=== PATIENT | female | born 2000 | race Two or more races ===

== ENCOUNTER 2024-09-30 09:37 | Outpatient (REF) | payer OTHER, SELFPAY ==
[2024-09-30 14:08] LABS: HCG Quantitative < 2 mIU/mL
== END 2024-09-30 09:38 | disposition home or self-care (01) ==
LOC: HO.HMGCLDS 09:37
PROVIDERS: Visit Provider Nurse Practitioner Family
DX: Z39.1 Encounter for care and examination of lactating mother (principal); N91.1 Secondary amenorrhea; G43.009 Migraine without aura, not intractable, without status migrainosus
CPT/HCPCS: 36415; 81025; 84702; 99212

== ENCOUNTER 2024-09-30 09:37 | Outpatient (AMB) | payer OTHER, SELFPAY ==
--- NOTE | 2024-09-30 10:12 | MHC.OFFWIV ---
Intake Vital Signs 09/30/24 10:13 Height 5 ft Weight 120 lb BMI 23.4 BP 92/60 Blood Pressure Location Rt brachial Position Sitting Pulse 64 Pulse Source Pulse Oximeter Temp 97.8 F Temp Source Oral Pulse Oximetry (%) 99 Oxygen Delivery Method Room Air Intake Visit Reasons: DOCTOR OF AUDIOLOGY- Over 5M VALENCIA Intake Note: Pt is here today c/o on & off H/A 5mo. also hasn't had her menses around the same time headache started Allergies No Known Allergies Allergy (Verified 09/30/24 10:35) Medication List - Last Reconciled 09/30/24 by Carole Levy, EMBEDDED HARDWARE ENGINEER- sumatriptan succinate (Imitrex) take 1 tab at onset of headache; if no relief may repeat 1 tab after at least 2 hrs; max = 4 tabs/24 hr PO HPI HPI Comments History of Present Illness Details 24-year-old female, Ukrainian-speaking here today with her teenage daughter and 11 month old daughter. Dtr helps w/ language barrier. Complaints of daily headaches for 5 months. Uses ibuprofen 3-4 times per week which does cure her headache. She describes the headache as pressure in her forehead and in her temples. Sometimes at the base of her skull. She denies any other neuro symptoms to include auras. Unfortunately she does not have a primary care provider. States that she has never been seen by a neurologist. In addition to this complaint she does report that she has not had her period in 5 months. She ius her 60-hqmrw-zvj daughter. She is active with [facility] but she has not called her informed them about this issue. Exam Awake alert oriented, no acute distress PERRLA, EOMI Regular rate and rhythm Lung sounds clear to auscultation bilat Grossly normal neuro exam Plan Urine test negative. Made aware that can cause amenorrhea. States that her period came back in April and then stopped. Reports that the similar thing happened with the of her [id number]-trm daughter. Therefore we will check a blood hCG quantitative. I strongly recommend that she follow up with her layer up provider. Treat for her migraine headaches with Imitrex. [facility] reviewed. This is safe for as well as . Take as directed. Strongly encouraged to establish care with a primary care provider for further follow up as this will be a chronic condition going forward. Educated on reasons to seek care in the emergency room. At 13:05 I did review the patient's chart. It does not appear that she stopped at the lab to get the HCG drawn as recommended. This note is constructed using voice recognition software. While every effort has been made to ensure accuracy in pneumatic tube repairer, still errors may have been included Sometimes, these errors may affect the content or meaning of the given sentence . Total time spent caring for the patient today was 30 minutes. This includes time spent before the visit reviewing the chart, time spent during the visit, and time spent after the visit on documentation Physical Exam Vital Signs: Last Vital Signs Temp 97.8 F 09/30/24 10:13 Pulse 64 09/30/24 10:13 BP 92/60 09/30/24 10:13 Pulse Ox 99 09/30/24 10:13 Oxygen Delivery Method Room Air 09/30/24 10:13 BMI result Body Mass Index 23.4 Results AMB Test Urine AMB Test Urine Negative Last Edit by Dory Christy CMA on 09/30/24 10:31 Results Reviewed Results Reviewed: Laboratory Last Values [facility]st Clinic Negative 09/30/24 10:30 Assessment & Plan Assessment & Plan (1) Secondary amenorrhea: Code(s): N91.1 - Secondary amenorrhea Plan: . (2) Breast feeding status of mother: Code(s): Z39.1 - Encounter for care and examination of lactating mother Plan: . (3) Migraine without aura: Code(s): G43.009 - Migraine without aura, not intractable, without status migrainosus Qualifiers: Intractability: not intractable Status migrainosus presence: without status migrainosus Qualified Code(s): G43.009 - Migraine without aura, not intractable, without status migrainosus Plan: . Orders: Orders AMB HCG Urine Test Today Z32.02 - Encounter for test, result negative HCG Quantitative Today N91.1 - Secondary amenorrhea Medications: New sumatriptan succinate (Imitrex) take 1 tab at onset of headache; if no relief may repeat 1 tab after at least 2 hrs; max = 4 tabs/24 hr PO 7 tabs 0RF Coding Level of Care Code Est Pt Level 4 (58893) Diagnoses Secondary amenorrhea N91.1 Breast feeding status of mother Z39.1 Migraine without aura and without status migrainosus, not intractable G43.009 Intractability: not intractable Status migrainosus presence: without status migrainosus
[2024-09-30 10:13] VITALS: BP 92/60; PULSE 64; TEMP 36.6; O2SAT 99; BMI 23.4
== END 2024-09-30 10:58 | disposition home or self-care (01) ==
PROVIDERS: Visit Provider Nurse Practitioner Family
DX: N91.1 Secondary amenorrhea (principal); G43.009 Migraine without aura, not intractable, without status migrainosus; Z32.02 Encounter for pregnancy test, result negative

== ENCOUNTER 2025-11-09 13:40 | Outpatient (REF) | payer MEDICAID, SELFPAY ==
--- OUTSIDE RECORDS SUMMARY | 2025-11-09 13:00 | XMS_ITS | Encounter Summary ---
Author Organization [employer] Address [address] [place] [address] Care Team Providers Care Digital Forensic Analyst Name Role Phone Mana Merrill MD Primary Care Provider [phone] Reason for Visit * Reason Comments new pt Encounter Details Date Type Department Care Team (Late st Contact Info) Description 11/09/2025 1:00 PM EST Office Visit [facility] [address], [place] [phone] Mana Merrill MD [address], [place] [phone] Pelvic pain (Primary Dx); Dietary counseling; Exercise counseling; Encounter for immunization Social History Tobacco Use Types Packs/Day Years Used Date Smoking Tobacco: Never Smokeless Tobacco: Never Alcohol Use Standard Drinks/Week Comments Defer 0 (1 standard drink = 0.6 oz pur e alcohol) Depression Answer Date Recorded Patient Health Questionnaire-9 Score 0 11/09/2025 Patient Health Questionnaire-9 Score 0 11/09/2025 Last PHQ-9: Questionnaire Data Not on file 1 01/10/2025 Housing Stability Answer Date Recorded What is your housing situation today? I have kathy pritchett 10/31/[address] you li ve. Do you have problems with any of the following? None of the above 10/31/2025 Food Insecurity Answer Date Recorded Within the past 12 months, y ou worried that your food would run out before you got money to buy more: Never True 10/31/2025 Within the past 12 months,th e food you bought just didn't last and you didn't have enough money to get more: Never True 08/2025 Transportation Answer Date Recorded In the past 12 months, has l ack of transportation kept you from medical appts, meetings, work or from getting things needed for daily living? No 10/31/2025 Utilities Answer Date Recorded In the past 12 months, has t he electric, gas, oil or water company threatened to shut off services in your home? No 10/31/2025 Depression Answer Date Recorded Patient Health Questionnaire-2 Score 0 11/09/2025 Internet Access Answer Date Recorded Internet Access Q1 Yes 10/31/2025 Internet Access Q2 Not on file 10/31/2025 Comments No Sex and Gender Information Value Date Recorded Sex Assigned at Female 06/06/2024 9:24 AM EDT Legal Sex Female 12:23 PM EST Gender Identity Female 06/06/2024 9:24 AM EDT Sexual Orientation Choose not to disclose 2023 9:24 AM EDT documented as of this encounter Last Filed Vital Signs Vital Sign Reading Time Taken Comments Blood Pressure 100/74 11/09/2025 1:11 PM EST Pulse 74 11/09/2025 1:11 PM EST Temperature 37.6 C (99.6 F) 11/09/2025 1:11 PM EST Respiratory Rate 20 11/09/2025 1:11 PM EST Oxygen Saturation 97% 11/09/2025 1:11 PM EST Inhaled Oxygen Concentration - - Weight 61.4 kg (135 lb 6.4 oz) 11/09/2025 1:11 P M EST Height 147.3 cm (4' 10 ) 11/09/2025 1:11 PM EST Body Mass Index 28.3 11/09/2025 1:11 PM EST documented in this encounter Functional Status * Over the past 2 weeks, how often have you been bothered by any of the following problems? Question Answer Date of Assessment Author Patient Health Questionnaire -2 Score 0 11/09/2025 1:39 PM EST Maxine Curtis MA * Little interest or pleasure in doing things Answer Date of Assessment Author Not at all 11/09/2025 1:39 PM EST Maxine Curtis MA * Feeling down, depressed, or hopeless Answer Date of Assessment Author Not at all 11/09/2025 1:39 PM EST Maxine Curtis MA * Trouble falling or staying asleep, or sleeping too much Answer Date of Assessment Author Not at all 11/09/2025 1:39 PM EST Maxine Curtis MA * Feeling tired or having little energy Answer Date of Assessment Author Not at all 11/09/2025 1:39 PM Maxine Pemberton MA * Poor appetite or overeating Answer Date of Assessment Author Not at all 11/09/2025 1:39 PM Maxine Pemberton MA * Feeling bad about yourself - or that you are a failure or have let yourself or your family down Answer Date of Assessment Author Not at all 11/09/2025 1:39 PM Maxine Pemberton MA * Trouble concentrating on things, such as reading the newspaper or watching television Answer Date of Assessment Author Not at all 11/09/2025 1:39 PM Maxine Pemberton MA * Moving or speaking so slowly that other people could have noticed? Or the opposite - being so fidgety or restless that you have been moving around a lot more than usual. Answer Date of Assessment Author Not at all 11/09/2025 1:39 PM Maxine Pemberton MA * Thoughts that you would be better off or hurting yourself in some way Answer Date of Assessment Author Not at all 11/09/2025 1:39 PM Maxine Pemberton MA * Patient Health Questionnaire-9 Score Answer Date of Assessment Author 0 11/09/2025 1:39 PM Maxine Pemberton MA * Over the last 2 weeks, how often have you been bothered by any of the following problems? Question Answer Date of Assessment Author Feeling nervous, anxious, or on edge 1 11/09/2025 1:39 PM Maxine Pemberton MA Not being able to stop or co ntrol worrying 0 11/09/2025 1:39 PM Maxine Pemberton MA Worrying too much about diff erent things 1 11/09/2025 1:39 PM Maxine Pemberton MA Trouble relaxing 0 11/09/2025 1:39 PM Maxine Shelby MA Being so restless that it is hard to sit still 0 11/09/2025 1:39 PM Maxine Pemberton MA Becoming easily annoyed or irritable 0 11/09/2025 1:39 PM Maxine Pemberton MA Feeling afraid as if somethi ng awful might happen 0 11/09/2025 1:39 PM EST Maxine Curtis MA ELDON-7 Total Score 2 11/09/2025 1:39 PM EST Maxine Curtis MA documented as of this encounter Plan of Treatment Pending Results Name Type Priority Associated Diagnoses Date /Time Urinalysis, Complete, with Reflex to Culture Lab Routine Pelvic pain 11/09/2025 1:45 PM EST Scheduled Orders Name Type Priority Associated Diagnoses Orde r Schedule TSH W/Reflex to FT4 Lab Routine Pelvic pain Expected: 11/09/2025 (Approximate), Expires: 11/09/2026 Comprehensive Metabolic Panel Lab Routine Pelvic pain Expected: 11/09/2025 (Approximate), Expires: 11/09/2026 documented as of this encounter Procedures Procedure Name Priority Date/Time Associated Diagnosis Comments URINALYSIS, COMPLETE, WITH REFLEX TO CULTURE Routine 11/09/2025 1:45 PM EST Pelvic pain CBC WITH AUTO DIFFERENTIAL Routine 11/09/2025 1:45 PM EST Pelvic pain documented in this encounter Results * (ABNORMAL) CBC auto differential (11/09/2025 1:45 PM EST) White Blood Count 6.2 4.8 - 10.8 X10*3/uL [facility] Red Blood Count 4.18(L) 4.20 - 5.50 X10*6/uL [facility] Hemoglobin 11.7(L) 12.0 - 16.0 g/dl [facility] Hematocrit 36.3(L) 37.0 - 47.0 % [facility] Mean Corpuscular Volume 86.8 80.0 - 98.0 fL [facility] Mean Corpuscular Hemoglobin 28.0 27.0 - 33.0 pg [facility] Mean Corpuscular HGB Conc 32.2 31.0 - 35.0 g/dl [facility] Red Cell Distribution Width 13.3 11.0 - 16.0 % [facility] Platelet Count 223 160 - 400 X10*3/uL [facility] Mean Platelet Volume 10.6 9.4 - 12.3 fL [facility] Neutrophils Percent Auto 48.5 45 - 73 % [facility] Imm Gran Pct Auto 0.2 0.0 - 0.4 % [facility] Lymphocytes Percent Auto 39.5 20 - 40 % [facility] Monocytes Percent Auto 8.0 2 - 11 % [facility] Eosinophils Percent Auto 3.0 0 - 4 % [facility] Basophils Percent Auto 0.8 0 - 2 % [facility] NRBC Pct Auto 0.0 0.0 - 0.2 /100WBC [facility] Neutrophils Absolute Auto 3.0 2.0 - 8.3 x10*3/uL [facility] Imm Gran Abs Auto 0.01 0.00 - 0.03 X10*3/uL [facility] Lymphocytes Absolute Auto 2.5 1.2 - 4.9 X10*3/uL [facility] Monocytes Absolute Auto 0.5 0.1 - 1.2 X10*3/uL [facility] Eosinophils Absolute Auto 0.2 0.0 - 0.4 X10*3/uL [facility] Basophils Absolute Auto 0.1 0.0 - 0.2 X10*3/uL [facility] NRBC Abs Auto 0.000 0.0 - 0.012 X10*3/uL [facility] Blood Venous blood specimen / Unknown 11/09/2025 1:45 PM EST 11/09/2025 2:50 PM EST us Mana Merrill MD LAB BLOOD ORDERABLES Final Res ult [facility] [address] [place] [address] [phone] documented in this encounter Visit Diagnoses Diagnosis Pelvic pain- Primary Dietary counseling Dietary surveillance and counseling Exercise counseling Encounter for immunization documented in this encounter Additional Health Concerns Assessment Noted Time PHQ-9 Depression Total Score: 0 11/09/20 25 1:39 PM EST documented as of this encounter Care Teams Digital Forensic Analyst Relationship Specialty Start Date End Date Mana Merrill MD [address] [place] [address] PCP - General Family Medicine 11/09/25 documented as of this encounter
[2025-11-09 14:56] LABS: MANUAL DIFF FLAG NO
[2025-11-09 15:13] LABS: Hematocrit 36.3 % (37.0-47.0); Hemoglobin 11.7 g/dl (12.0-16.0); Imm Gran Abs Auto 0.01 X10*3/uL (0.00-0.03); Imm Gran Pct Auto 0.2 % (0.0-0.4); Lymphocytes Absolute Auto 2.5 X10*3/uL (1.2-4.9); Mean Corpuscular HGB Conc 32.2 g/dl (31.0-35.0); Mean Corpuscular Hemoglobin 28.0 pg (27.0-33.0); Mean Corpuscular Volume 86.8 fL (80.0-98.0); NRBC Abs Auto 0.000 X10*3/uL (0.0-0.012); NRBC Pct Auto 0.0 /100WBC (0.0-0.2); Platelet Count 223 X10*3/uL (160-400); Red Blood Count 4.18 X10*6/uL (4.20-5.50); White Blood Count 6.2 X10*3/uL (4.8-10.8)
[2025-11-09 15:14] LABS: Appearance Urine Clear; Glucose Urine UA Negative (Negative); PH 7.5 (5.0-9.0); Specific Gravity - Urine 1.025 (1.005-1.025)
--- OUTSIDE RECORDS SUMMARY | 2025-11-09 15:23 | XMS_ITS | Encounter Summary ---
Author Organization [employer] Address [address] [place] [address] Care Team Providers Care Glue Jointer Feeder Name Role Phone Unavailable Primary Care Provider Unavailabl e Reason for Visit * Reason Onset Date Comments Chart Prep 11/08/2025 Encounter Details Date Type Department Care Team (Late st Contact Info) Description 11/08/2025 Telephone [facility] [address] [place], [place] [phone] Mana Merrill MD [address] [place], [place] [phone] Chart Prep Social History Tobacco Use Types Packs/Day Years [...] the past 12 months, has t he Mobile Authentication, gas, oil or water [employer] threatened to shut off services in your [...] AM EDT documented as of this encounter Miscellaneous Notes * Telephone Encounter - Jayna Fonseca MA - 11/08/2025 11:25 AM EST Chart Prep Labs: done Images: not applicable Referrals: not applicable Vaccines due: Covid, Flu, Hep B, and HPV Screenings: pap smear, LMP, PISQ, and HIV Screening, Hep C Screening Overdue care gaps: SBIRT, PHQ-9, ELDON-7, and Disability screen documented in this encounter Plan of Treatment Not on file documented as of this encounter Visit Diagnoses Not on filedocumented in this encounter
--- OUTSIDE RECORDS SUMMARY | 2025-11-09 15:23 | XMS_ITS | Clinical Summary ---
Author Organization [employer] Address [address] [facility] [address] [place] [address] Care Team Providers Care Accounting Manager Controller Name Role Phone Mana Merrill MD Primary Care Provider [phone] Allergies Active Allergy Reactions Criticality Noted Date Comments Shellfish Allergy Swelling 12/17/2023 Shrimp Shrimp Extract Swelling 12/20/2023 Medications acetaminophen (Tylenol) 325 MG tablet Take 975 mg by mouth every 6 (six) hours if needed. 4 Active SUMAtriptan (Imitrex) 25 MG tablet PLEASE SEE ATTACHED FOR DETAILED DIRECTIONS 4 Active hydrocortisone 1 % ointment Apply topically 2 times daily. 30 g 3 5 Active ibuprofen 600 MG tablet Take 1 tablet (600 mg) by mouth 3 times daily. 90 tablet 5 12/09/19 Active Active Problems Problem Noted Date Diagnosed Date Impacted third molar tooth 07/18/2025 Tooth decalcification 07/18/2025 Tooth sensitivity 07/18/2025 Pain in tooth 07/18/2025 History of tooth extraction 05/21/2025 Dental calculus 01/15/2025 Frequent headaches 10/09/2024 Tipped teeth 07/13/2024 Dental plaque 07/13/2024 Missing teeth, acquired 07/13/2024 Resorption of root of tooth due to orthodontic f orce 07/13/2024 Fractured dental latter day without loss of mat erial 07/13/2024 care and examination 03/02/2024 Overview (06/07/2024): Last Assessment & Plan: -Pap smear obtained today Anemia due to acute blood loss 01/17/2024 Overview (06/07/2024): Last Assessment & Plan: Discussed HGB 7.0 - she denies s/s of anemia - reviewed R/B of blood transfusion - she is undecided. She will see how she feels with walking to new room and then decide. Normal intrauterine , antepartum 2023 Low-lying placenta 12/28/2023 Overview (06/07/2024): 1.8 cm from os at 35 weeks Recheck in 3 weeks Last Assessment & Plan: Has f/u sono scheduled for next week. Maternal varicella, non-immune 12/27/2023 Rubella non-immune status, antepartum 12/27/2023 Encounter for supervision of normal first in third trimester 12/20/2023 Overview (06/07/2024): CNM [place] speaking only - needs boring mill set up operator Group PN care? No - late to care (1st visit at 35 weeks) screening considering Baby ASA? no Rh positive GC/Chlam collected 12/20/23 PAP - unknown Flu 12/20/23 COVID-19 had vaccine prior to , unsure of date Hgb 10.5 at 35 weeks (rx sent for iron) GTT -not done, collected HgbA1c and random on 12/20/23 Repeat RPR pending Tdap 12/20/23 RSV 12/27/23 EPDS - 11 - disc avail of [facility] services and declined at 37w PPBC * GBS neg Feeding Plan breast Last Assessment & Plan: Seen w video boring mill set up operator both with her brother and also in private. Difficult to interview with limited responses. Her brother or sister will drive her to [facility] for labor. Her brother had a baby at [facility] a few weeks ago, so he knows where to go. She still needs more things for the baby. Reviewed again with brother availability of [facility] where they can both go and get needed items. Described [facility] counseling with [facility] therapists and virtual appts to disc her recent stresses of immigration. She declines at this time. Reviewed in detail when/how to call for labor or any concerns. 3rd tri comforts measures reviewed. Disc steps to take toward optimal health in . Reviewed s/s labor, danger signs, when/how to call. Limited care in third trimester 024 Overview (06/07/2024): Immigrated to [place] in 3rd trimester, first OB visit 12/20/23. 2 visits in [facility]. Decreased movement aff ecting management of mother, antepartum 12/17/2023 Encounters Date Type Department Care Team Description 11/09/2025 1:00 PM EST Office Visit [facility] [address] [place] [address] Mana Merrill MD Pelvic pain (Primary Dx); Dietary counseling; Exercise counseling; Encounter for immunization 11/09/2025 Travel 11/08/2025 Telephone [facility] [address] [place] [address] Mana Merrill MD Chart Prep 10/31/2025 Patient Outreach [facility] [address] [place] [address] Mana Merrill MD Pre-visit Planning (SDOH screening negative and tobacco screening negative) 10/02/2025 Telephone [facility] INS ENROLLMENT [address] [place] [address] Silvana Hameed MD from Last 3 Months Immunizations Immunization Administration Dates Next Due Influenza injectable quadrivalent preservative f ree 12/20/2023 Influenza, seasonal, injectable, preservative fr ee 11/09/2025 MMR 01/20/2024 RSV Bivalent 12/27/2023 Tdap 12/20/2023 Varicella 01/20/2024 Social History Tobacco Use Types Packs/Day Years Used Date Smoking Tobacco: Never Smokeless Tobacco: Never Tobacco Cessation:Counseling Given: Not Answered Alcohol Use Standard Drinks/Week Comments Defer 0 [...] not to disclose 2023 9:24 AM EDT Last Filed Vital Signs Vital Sign Reading [...] Mass Index 28.3 11/09/2025 1:11 PM EST Plan of Treatment Health Maintenance Due Date Last Done Comments HIV Screening 1999 Family Planning (PISQ) 2014 HPV Vaccines (1 - 3-dose series) 2014 Hepatitis C Screening 2017 Hepatitis B Vaccines (1 of 3 - 19+ 3-dose series) 2018 Pap Smear 2020 Dental Oral Exam 01/14/2025 07/13/2024 COVID-19 Vaccine (1 - 2024-2 6 season) 2025 Dental Prophylaxis 01/19/2026 07/18/2025, 01/15/2025, 07/13/2024 Dental X-Ray: Bitewings 07/19/2026 07/18/20, 07/13/2024, 06/07/2024 SDOH Screening 10/31/2026 10/31/2025 Alcohol/Substance Use Screening 11/09/2026 11/09/2025 Depression Screening 11/09/2026 11/09/2025, 11/09/2025 Disability Screening 11/09/2026 11/09/2025 Tobacco Screening 11/09/2026 11/09/2025 Dental X-Ray: Full Mouth 05/22/2028 025, 07/13/2024 DTaP/Tdap/Td Vaccines (2 - T d or Tdap) 12/20/2033 12/20/2023 Zoster Vaccines (1 of 2) 2049 RSV Patients and Patients Aged 60 years or older Completed 12/27/2023 Influenza Vaccine Completed 11/09/2025, 12/20/2023 HIB Vaccines Aged Out No longer eligi ble based on patient's age to complete this topic Hepatitis A Vaccines Aged Out No long er eligible based on patient's age to complete this topic IPV Vaccines Aged Out No longer eligi ble based on patient's age to complete this topic Meningococcal B Vaccine Aged Out No l onger eligible based on patient's age to complete this topic Meningococcal Vaccine Aged Out No yao shaun eligible based on patient's age to complete this topic Pneumococcal Vaccine: Pediatrics (0 to 5 Years) and At-Risk Patients (6 to 49) Years Aged Out No longer eligible b ased on patient's age to complete this topic RSV under 20 months Aged Out No longe r eligible based on patient's age to complete this topic Rotavirus Vaccines Aged Out No longer eligible based on patient's age to complete this topic Procedures Procedure Name Priority Date/Time Associated Diagnosis Comments URINALYSIS, COMPLETE, WITH REFLEX TO CULTURE Routine 11/09/2025 1:45 PM EST Pelvic pain CBC WITH AUTO DIFFERENTIAL Routine 11/09/2025 1:45 PM EST Pelvic pain PROPHYLAXIS - ADULT Routine 07/18/2025 1 :00 PM EDT Dental plaque BITEWINGS - 4 RADIOGRAPHIC IMAGES Routine 07/18/2025 1:00 PM EDT Tooth decalcification Tooth sensitivity Pain in tooth Dental plaque Missing teeth, acquired Resorption of root of tooth due to orthodontic force Tipped teeth Impacted third molar tooth PANORAMIC RADIOGRAPHIC IMAGE Routine 05/21/2025 1:30 PM EDT PERIODIC ORAL EVALUATION - ESTABLISHED PATIENT Routine 07/13/2024 10:00 AM EDT from Last 3 Months or Most Recently Relevant to Health Maintenance Results * (ABNORMAL) CBC auto differential (11/09/2025 1:45 PM EST) White Blood Count 6.2 4.8 - 10.8 X10*3/uL [facility] Red Blood Count 4.18(L) 4.20 - 5.50 X10*6/uL [facility] Hemoglobin 11.7(L) 12.0 - 16.0 g/dl [facility] Hematocrit 36.3(L) 37.0 - 47.0 % [facility] Mean Corpuscular Volume 86.8 80.0 - 98.0 fL [facility] Mean Corpuscular Hemoglobin 28.0 27.0 - 33.0 pg [facility] Mean Corpuscular HGB Conc 32.2 31.0 - 35.0 g/dl [facility] Red Cell Distribution Width 13.3 11.0 - 16.0 % [facility] Platelet Count 223 160 - 400 X10*3/uL [facility] Mean Platelet Volume 10.6 9.4 - 12.3 fL [facility] Neutrophils Percent Auto 48.5 45 - 73 % [facility] Imm Gran Pct Auto 0.2 0.0 - 0.4 % [facility] Lymphocytes Percent Auto 39.5 20 - 40 % [facility] Monocytes Percent Auto 8.0 2 - 11 % [facility] Eosinophils Percent Auto 3.0 0 - 4 % [facility] Basophils Percent Auto 0.8 0 - 2 % [facility] NRBC Pct Auto 0.0 0.0 - 0.2 /100WBC [facility] Neutrophils Absolute Auto 3.0 2.0 - 8.3 x10*3/uL [facility] Imm Gran Abs Auto 0.01 0.00 - 0.03 X10*3/uL [facility] Lymphocytes Absolute Auto 2.5 1.2 - 4.9 X10*3/uL [facility] Monocytes Absolute Auto 0.5 0.1 - 1.2 X10*3/uL [facility] Eosinophils Absolute Auto 0.2 0.0 - 0.4 X10*3/uL [facility] Basophils Absolute Auto 0.1 0.0 - 0.2 X10*3/uL [facility] NRBC Abs Auto 0.000 0.0 - 0.012 X10*3/uL [facility] Blood Venous blood specimen / Unknown 11/09/2025 1:45 PM EST 11/09/2025 2:50 PM EST us Mana Merrill MD LAB BLOOD ORDERABLES Final Res ult Performing Organization Address City/State/[facility] Co de Phone Number [facility] [address] [place] [address] [phone] from Last 3 Months Insurance [employer] [facility] [employer] STAND ADULT Care Teams Accounting Manager Controller Relationship Specialty Start Date End Date Mana Merrill MD [address] [place] [address] PCP - General Family Medicine 11/09/25
--- OUTSIDE RECORDS SUMMARY | 2025-11-09 15:23 | XMS_ITS | Encounter Summary ---
Author Organization [employer] Address [address] [facility] [address] [place] [address] Care Team Providers Care Work Car Operator Name Role Phone Mana Merrill MD Primary Care Provider [phone] Encounter Details Date Type Department Care Team (Latest Contact Info) Description 11/09/2025 Travel Social History Tobacco Use Types Packs/Day Years [...] AM EDT documented as of this encounter Plan of Treatment Not on file documented as of this encounter Visit Diagnoses Not on filedocumented in this encounter Additional Health Concerns Assessment Noted Time PHQ-9 Depression Total Score: 0 11/09/20 1:39 PM EST documented as of this encounter Care Teams Work Car Operator Relationship Specialty Start Date End Date Mana Merrill MD [address] [place] [id number] PCP - General Family Medicine 11/09/25 documented as of this encounter
[2025-11-09 15:54] LABS: Alanine Aminotransferase 29 U/L (0-31); Albumin Level 4.5 g/dL (3.5-5.0); Alkaline Phosphatase 75 U/L (39-117); Anion Gap 9 (12-20); Aspartate Amino Transferase 26 U/L (5-31); Blood Urea Nitrogen 13 mg/dL (9-16); Calcium 9.3 mg/dL (8.4-10.2); Carbon Dioxide 24 mmol/L (22-29); Chloride 110 mmol/L (96-108); Estimated Glomerular Filt Rate > 60; Potassium 4.1 mmol/L (3.3-5.1); Sodium 139 mmol/L (135-145); Total Protein 7.4 g/dL (6.5-8.0)
== END 2025-11-09 13:41 | disposition home or self-care (01) ==
LOC: HO.HHCL 13:40
PROVIDERS: PCP General Practice; Visit Provider General Practice
DX: R10.20 Pelvic and perineal pain unspecified side (principal)
CPT/HCPCS: 36415; 80053; 81001; 84443; 85025